=== PATIENT | male | born 1965 | race Caucasian/White ===

== ENCOUNTER 2019-04-27 19:37 | Observation (INO) ==
[2019-04-27] MEDS ORDERED: 0.9 % Sodium Chloride 1,000 ML IVC ONE (22:13)
[2019-04-27] MEDS ORDERED: Ipratropium/Albuterol Neb 3 ML IH ONE (22:13)
--- NOTE | 2019-04-27 22:16 | Emergency Department Note ---
Disposition Clinical Impression: Acute exacerbation of chronic obstructive airways disease Community acquired pneumonia Qualifiers: Laterality: right Lung location: upper lobe of lung Qualified Code(s): J18.1 - Lobar pneumonia, unspecified organism Disposition: Admitted As Inpatient Condition: Fair Forms: ED Satisfaction Letter Time of Disposition: 23:41 SOB HPI - General Chief Complaint: ED Shortness of Breath/Dyspnea Stated Complaint: here last night/dx pneumonia/back to feels worse Time Seen by Provider: 04/27/19 21:52 Source: patient Mode of arrival: ambulatory Limitations: no limitations Nursing Notes Reviewed: Yes Vital Signs Reviewed: Yes - History of Present Illness 53-year-old male presents to the emergency department shortness of breath. He was here yesterday for similar symptoms diagnosed with an ammonia he was offered admission due to his history of COPD and having nebulizers at home. He said that he felt like he wanted to go home so they sent him home with steroids as well as Levaquin. Said he took all of his medications as prescribed said even after taking and today continues to not feel any better and actually feels worse than yesterday. Said he feels hot but has not had a fever. No nausea no vomiting. Feels he cannot catch his breath even after he does a DuoNeb. Said this is worsening symptoms. No chest pain at this time. Otherwise patient has no other complete a this time - Related Data Home Medications Medication Instructions Recorded Confirmed Gabapentin [Neurontin] 300 mg PO BID PRN 04/27/19 04/27/19 Previous Rx's Medication Instructions Recorded Ipratropium/Albuterol Neb [Duoneb] 3 ml IH Q6HR PRN #8 vial.neb 06/08/18 Albuterol Sulfate [Albuterol 2 puff IH Q4HR #1 puff 10/05/18 Inhaler] Ondansetron ODT [Zofran ODT] 4 mg SL Q6HR PRN #15 tab.rapdis 10/15/18 methylPREDNISolone [Medrol] 4 mg PO DAILY 5 Days #1 tablet 03/07/19 PredniSONE [Deltasone] 20 mg PO DAILY #20 tablet 04/26/19 Allergies Allergy/AdvReac Type Severity Reaction Status Date / Time azithromycin Allergy Difficulty Verified 03/10/19 01:19 Breathing All systems ED: reviewed and negative except as stated. Review of Systems: As Per HPI Past Medical History - Past Medical History Attestation: Yes The following information was validated with the patient. Source: patient Medical history: Reports: COPD, other Surgical history: Reports: appendectomy, pacemaker/AICD, other Psychiatric history: Reports: no psych history - Social History Smoking Status: Current every day smoker Smokeless Tobacco Status: No Alcohol use: Reports: none Drug use: Reports: none Physical Exam - General Limitations: no limitations General appearance: alert - Head Head exam: atraumatic, normocephalic, normal inspection - Eye Eye exam: Present: normal appearance, PERRL, EOMI - ENT ENT exam: normal exam, normal oropharynx, mucous membranes moist - Neck Neck exam: Present: normal inspection, full ROM, trachea midline - Chest Chest inspection: Present: normal inspection, symmetric chest wall rise - Respiratory Respiratory exam: Present: wheezes. Absent: respiratory distress, accessory muscle use - Cardiovascular Cardiovascular exam: Present: regular rate, normal rhythm, normal heart sounds - Abdominal Exam Abdominal exam: Present: soft, Non-Tender, normal bowel sounds. Absent: tenderness, distention, guarding, rebound, rigidity - Extremities Exam Extremities exam: Present: normal inspection, full ROM. Absent: tenderness, pedal edema - Back Exam Back exam: Present: normal inspection, full ROM. Absent: tenderness - Neurological Exam Neurological exam: Present: alert, oriented X3 - Skin Skin exam: Present: warm, dry, intact, normal color Course Course Narrative: 53-year-old male presents with shortness of breath. We have patient Tulio's here he took his dose of Levaquin and steroids today. We will get blood cultures. CBC BMP as well as repeat chest x-ray. Patient will be admitted for further evaluation. Vital Signs Temperature 97.7 F 04/27/19 19:38 Pulse Rate 69 04/27/19 19:38 Respiratory Rate 24 04/27/19 19:38 Blood Pressure 110/77 04/27/19 19:38 O2 Sat by Pulse Oximetry 94 04/27/19 19:38 Temperature 97.7 F 04/27/19 21:49 Pulse Rate 62 04/27/19 23:05 Respiratory Rate 26 04/27/19 23:07 Blood Pressure 115/80 04/27/19 23:05 O2 Sat by Pulse Oximetry 96 04/27/19 23:07 Oxygen Delivery Oxygen Delivery Room Air Shortness of Breath/Dyspnea - [facility] Narrative Medical decision making narrative: 53-year-old male presented him or to prior shortness of breath worsening pneumonia. Chest x-ray actually looks better than previous one yesterday does have worsening white count. Shahid took his dose of Levaquin and steroids prior to coming today. We did get blood cultures. Patient is still not feeling very well to get DuoNeb treatments to this were going to admit the patient to the hospital service. For observation. Spoke with Dr. Armenta who agrees to admit the patient to their service. Patient is admitted in stable condition. Chest X-Ray 04/27/19 21:53 IMPRESSION: Improving left upper lobe airspace disease with fullness of the left hilum. Nonemergent contrast-enhanced chest CT scan is recommended for further evaluation. D/ / Antwon Rahman MD / Antwon Rahman MD Interpreting Provider: Antwon Rahman MD - Medical Records Medical records reviewed: Yes I reviewed the patient's medical records. - Lab Data Lab results reviewed: Yes I reviewed the patient's lab results. Result diagrams: 04/27/19 22:08 04/27/19 22:08 Lab Results 04/27/19 04/27/19 Range/Units 22:08 22:08 WBC 12.4 H D (4.3-11.1) K/mcL RBC 4.39 (4.19-5.50) M/mcL Hgb 13.0 (12.9-16.9) g/dL Hct 39.4 (37.5-50.1) % MCV 89.7 (83.0-100.0) fL MCH 29.6 (28.0-33.3) pg MCHC 33.0 (31.6-35.5) g/dL RDW 14.0 (11.5-14.5) % Plt Count 283 (140-400) K/mcL MPV 10.0 (9.4-12.4) fL Immature Gran % 0.4 (0-4) % Seg Neutrophils % 88.6 % Lymphocytes % 8.2 % Monocytes % 2.7 % Eosinophils % 0.0 % Basophils % 0.1 % Neutrophils # 11.0 H (1.6-8.9) K/mcL Lymphocytes # 1.0 (0.6-4.6) K/mcL Monocytes # 0.3 (0.0-1.3) K/mcL Eosinophils # 0.0 (0.0-0.6) K/mcL Basophils # 0.0 (0.0-0.2) K/mcL Sodium 140 (136-145) mEq/L Potassium 4.1 (3.5-5.1) mEq/L Chloride 106 (98-107) mEq/L Carbon Dioxide 25 (23-29) mEq/L BUN 16 (6-20) mg/dL Creatinine 0.79 (0.70-1.30) mg/dL Est GFR ( Amer) > 60 (> 60) Est GFR (Non-Af Amer) > 60 (> 60) BUN/Creatinine Ratio 20 (6-26) Glucose 119 H (70-105) mg/dL Calculated Osmolality 292 (280-300) Calcium 9.6 (8.6-10.3) mg/dL - Radiology Data Radiology results reviewed: Yes I reviewed the patient's radiology results.
[2019-04-27 22:25] LABS: Basophils % 0.1 %; Hematocrit 39.4 % (37.5-50.1); Immature Granulocytes % 0.4 % (0-4); Lymphocytes % 8.2 %; Mean Corpuscular Hemoglobin 29.6 pg (28.0-33.3); Mean Corpuscular Volume 89.7 fL (83.0-100.0); Monocytes # 0.3 K/mcL (0.0-1.3); Monocytes % 2.7 %; Platelet Count 283 K/mcL (140-400); Red Blood Count 4.39 M/mcL (4.19-5.50); Segmented Neutrophils % 88.6 %
[2019-04-27 22:26] LABS: White Blood Count 12.4 K/mcL (4.3-11.1)
[2019-04-27 22:44] LABS: BUN/Creatinine Ratio 20 (6-26); Blood Urea Nitrogen 16 mg/dL (6-20); Calcium 9.6 mg/dL (8.6-10.3); Carbon Dioxide 25 mEq/L (23-29); Chloride 106 mEq/L (98-107); Glucose 119 mg/dL (70-105); Osmolality,Calculated 292 (280-300); Potassium 4.1 mEq/L (3.5-5.1); Sodium 140 mEq/L (136-145); eGFR For African Americans > 60 (> 60); eGFR For Non-African Americans > 60 (> 60)
--- NOTE | 2019-04-28 00:05 | Emergency Department Note ---
Disposition Clinical Impression: Acute exacerbation of chronic obstructive airways disease Community acquired pneumonia Qualifiers: Laterality: right Lung location: upper lobe of lung Qualified Code(s): J18.1 - Lobar pneumonia, unspecified organism Disposition: Admitted As Inpatient Condition: Fair Time of Disposition: 23:41 General Adult HPI - General Chief complaint: ED Shortness of Breath/Dyspnea Stated complaint: here last night/dx pneumonia/back to feels worse Time Seen by Provider: 04/27/19 21:52 Source: patient Mode of arrival: ambulatory Limitations: no limitations - History of Present Illness Pain Scale: 8 - Related Data Previous Rx's Medication Instructions Recorded Ipratropium/Albuterol Neb [Duoneb] 3 ml IH Q6HR PRN #8 vial.neb 06/08/18 Albuterol Sulfate [Proventil 2 puff IH Q4HR #1 puff 10/05/18 Inhaler] PredniSONE [Deltasone] 20 mg PO DAILY #20 tablet 04/26/19 Nicotine Patch [Nicoderm] 14 mg TD DAILY PRN patch.td24 04/28/19 levoFLOXacin [Levofloxacin] 750 mg PO DAILY 7 Days #7 tablet 04/28/19 Allergies Allergy/AdvReac Type Severity Reaction Status Date / Time azithromycin Allergy Difficulty Verified 04/28/19 10:47 Breathing Past Medical History - Past Medical History Medical history: Reports: COPD, other Surgical history: Reports: appendectomy, pacemaker/AICD, other Psychiatric history: Reports: no psych history - Social History Smoking Status: Current every day smoker Smokeless Tobacco Status: No Alcohol use: Reports: none Drug use: Reports: none Physical Exam - General Limitations: no limitations General appearance: alert Course Vital Signs Temperature 97.7 F 04/27/19 19:38 Pulse Rate 69 04/27/19 19:38 Respiratory Rate 24 04/27/19 19:38 Blood Pressure 110/77 04/27/19 19:38 O2 Sat by Pulse Oximetry 94 04/27/19 19:38 Temperature 99.0 F 04/28/19 11:02 Pulse Rate 91 04/28/19 11:02 Respiratory Rate 18 04/28/19 11:26 Blood Pressure 130/81 04/28/19 11:02 O2 Sat by Pulse Oximetry 96 04/28/19 11:26 Oxygen Delivery Oxygen Delivery Room Air Medical Decision Making - Lab Data Result diagrams: 04/27/19 22:08 04/27/19 22:08 Lab Results 04/27/19 04/27/19 Range/Units 22:08 22:08 WBC 12.4 H D (4.3-11.1) K/mcL RBC 4.39 (4.19-5.50) M/mcL Hgb 13.0 (12.9-16.9) g/dL Hct 39.4 (37.5-50.1) % MCV 89.7 (83.0-100.0) fL MCH 29.6 (28.0-33.3) pg MCHC 33.0 (31.6-35.5) g/dL RDW 14.0 (11.5-14.5) % Plt Count 283 (140-400) K/mcL MPV 10.0 (9.4-12.4) fL Immature Gran % 0.4 (0-4) % Seg Neutrophils % 88.6 % Lymphocytes % 8.2 % Monocytes % 2.7 % Eosinophils % 0.0 % Basophils % 0.1 % Neutrophils # 11.0 H (1.6-8.9) K/mcL Lymphocytes # 1.0 (0.6-4.6) K/mcL Monocytes # 0.3 (0.0-1.3) K/mcL Eosinophils # 0.0 (0.0-0.6) K/mcL Basophils # 0.0 (0.0-0.2) K/mcL Sodium 140 (136-145) mEq/L Potassium 4.1 (3.5-5.1) mEq/L Chloride 106 (98-107) mEq/L Carbon Dioxide 25 (23-29) mEq/L BUN 16 (6-20) mg/dL Creatinine 0.79 (0.70-1.30) mg/dL Est GFR ( Amer) > 60 (> 60) Est GFR (Non-Af Amer) > 60 (> 60) BUN/Creatinine Ratio 20 (6-26) Glucose 119 H (70-105) mg/dL Calculated Osmolality 292 (280-300) Calcium 9.6 (8.6-10.3) mg/dL Attestation Statement - Attestation Attestation: I examined this patient and my medical decision-making was reviewed with the Resident Physician. I agree with the documented findings, disposition and treatment plan as described except to the extent set forth below. Patient 53-year-old Grisel presents to emergency room with chief complaint of shortness of breath. Patient was seen in the emergency department yesterday and diagnosed with a pneumonia the patient was offered admission with the patient opted for outpatient therapy and did not was stay in the hospital at that time. The patient returns back to the emergency department today because he is not getting any better and wishes to be admitted to the hospital this time physical exam patient is awake alert in no acute distress on a nebulizer treatment and evaluation Medical decision management given the nonimprovement patient will be admitted to the hospital case was discussed with the hospitalist the patient was accepted to the hospitalist service I personally supervised and was present for the phipps/critical portions of the following procedures completed by the resident:EKG.
[2019-04-28] MEDS ORDERED: Naloxone 0.4 MG/ML INJ IVP PRN (00:46)
--- NOTE | 2019-04-28 00:46 | Internal Med History&Physical ---
<Jeanne Smith L - Last Filed: 04/28/19 04:32> Date of Encounter: 04/28/19 Time of Encounter: 00:46 Internal Medicine - H&P: HPI Chief complaint: shortness of breath Admitted From: Home History of present illness: Mr. Vargas is a 53 year old male with past medical history of COPD currently 1 pack per day smoker. Patient states he has had increase in shortness of breath, productive cough, decreased appetite, within the past month. Patient states he also has episodes of dizziness and palpitations with shortness of breath and nausea. Patient states on occasion he gets lightheaded and it takes a while to catch his breath. Patient states recently within the past 4-5 days his shortness of breath, coughing has been increasing. To the point of he feels burning in his chest and he feels chest pain. Patient states the chest pain is substernal chest pain that occurs with coughing. Patient admits to diaphoresis and increased dyspnea on exertion. Patient states he came into the ED one day prior to admission with the same symptoms where he was then given medications and discharged. He was told to return if he felt worse. Patient return if increased symptoms of shortness of breath. Patient states he took his nebulizer treatment twice during the day and started the medications prescribed to him without relief. Patient states just today the cough has become slightly dark tinged with blood although also states his throat is painful and scratchy due to increased sputum production. Patient is currently admitted due to concerns of chest pain, increase shortness of breath, COPD exacerbation. Past Med Surg Social Fam HX - Past Medical History Medical history: COPD, other Additional medical history: sciatic nerve problems and back pain Psychiatric history: no psych history - Past Surgical History Surgical History: appendectomy, pacemaker/AICD, other Additional surgical history: left ankle surgery - Social History Smoking Status: Current every day smoker Smokeless Tobacco Status: No Alcohol use: none Drug use: none Internal Medicine - H&P: Meds Ipratropium/Albuterol Neb [Duoneb] 3 ml IH Q6HR PRN #8 vial.neb 06/08/18 [Rx] Albuterol Sulfate [Albuterol Inhaler] 2 puff IH Q4HR #1 puff 10/05/18 [Rx] Ondansetron ODT [Zofran ODT] 4 mg SL Q6HR PRN #15 tab.rapdis 10/15/18 [Rx] methylPREDNISolone [Medrol] 4 mg PO DAILY 5 Days #1 tablet 03/07/19 [Rx] PredniSONE [Deltasone] 20 mg PO DAILY #20 tablet 04/26/19 [Rx] Gabapentin [Neurontin] 300 mg PO BID PRN 04/27/19 [History] Allergy/AdvReac Type Severity Reaction Status Date / Time azithromycin Allergy Difficulty Verified 03/10/19 01:19 Breathing All Systems PM: A 10-system review of systems was performed and is negative for pertinent findings except as documented above in the HPI. Review of systems: Constitutional: admits to Fever, Chills, Headache, Dizziness Respiratory: admits Shortness of breath, Chronic cough, Dyspnea with activity; denies Dyspnea at rest, or hemoptysis Cardiovascular: admits Chest pain, Syncope, palpitations; denies Peripheral edema Gastrointestinal: Denies hematochezia, Abdominal pain, vomiting, admits nausea Genitourinary: Denies Painful urination, hematuria, urinary retention Endocrine: denies unintentional Significant weight changes Skin: Denies rashes, or unexplained bruising - Constitutional Vitals: Temp Pulse Resp BP Pulse Ox 98.0 F 70 18 118/73 94 04/28/19 00:43 04/28/19 00:43 04/28/19 00:43 04/28/19 00:43 04/28/19 00:43 Exam: Gen: alert/oriented, in mild distress 2/2 to respiratory difficulty and an xiousness. Head: atraumatic, normocephalic. ENT: no oropharyngeal erythema, mucous membranes moist, Neck: No thyromegaly appreciated. Neck supple no cervical lymphadenopathy, mild paraspinal cervical tenderness and tension C4-C7 Resp: rhonchi heard throughout all lung vigil, with mild expiratory wheezing,no rhales. CV: RRR, Normal S1 and S2. No murmur, gallops, or rubs. GI/Abdominal exam: bowel sounds throughout, soft flat, non-tender, non-distended; no hepatosplenomegaly Skin: intact; no rashes, lesions, or bruising. Ext: No cyanosis or edema. pulses +2/4 bilaterally UE and LE. Neuro: no focal deficits, cooperative with exam. Internal Med - H&P Results - Labs CBC & Chem 7: 04/27/19 22:08 04/27/19 22:08 Labs: Short CBC 04/27/19 Range/Units 22:08 WBC 12.4 H D (4.3-11.1) K/mcL Hgb 13.0 (12.9-16.9) g/dL Hct 39.4 (37.5-50.1) % Plt Count 283 (140-400) K/mcL Neutrophils # 11.0 H (1.6-8.9) K/mcL BMP 04/27/19 22:08 Sodium 140 Potassium 4.1 Chloride 106 Carbon Dioxide 25 BUN 16 Creatinine 0.79 Glucose 119 H Calcium 9.6 - Impressions ITS Impressions Chest X-Ray 04/27/19 21:53 IMPRESSION: Improving left upper lobe airspace disease with fullness of the left hilum. Nonemergent contrast-enhanced chest CT scan is recommended for further evaluation. D/ / Antwon Rahman MD / Antwon Rahman MD Interpreting Provider: Antwon Rahman MD - Assessment and Plan (1) Chest pain Current Visit: Yes Status: Acute Assessment and plan: Patient is a 53Y male who presents with increasing SOB and dyspnea on exertion for 1 month. He states he also is having dizziness, and palpitations, and diaphoresis that occur with episodes of SOB. Patient states on occasion he has to catch himself and sit on the floor to catch his breath. Patient has a pacemaker implanted but states he has not seen a uptwist spinner since the device was implanted. On physical exam his chest pain was reproducible on palpation, although due to his concerning symptoms in addition to the chest pain we will r/o other concerns for chest pain, STEMI, NSTEMI, pericarditis, PE. Plan: - 325mg Aspirin PO - trend Troponins - If Trops elevated obtain repeat EKG - Obtain Mg, Phos - Telemetry Qualifiers: Chest pain type: chest pain on breathing Qualified Code(s): R07.1 - Chest pain on breathing; R07.81 - Pleurodynia (2) COPD exacerbation Current Visit: Yes Status: Acute Assessment and plan: Patient is a 53Y Male who presents with shortness of breath for 1 month that has recently increased within the last 4-5 days. Patient has recently recieved steroids and duonebs to improve his oxygenation. He has only completed one day of the taper prior to his admission. Plan: - Duonebs Q4H JUN - Albuterol Q2H PRN - Continue prednisoone taper begin at 60mg - placed order for 6 min walk to test due to complaints increased dyspnea on exertion at home. Patient may need supplemental oxygen at home. (3) Community acquired pneumonia Current Visit: Yes Status: Acute Assessment and plan: Patient is a 53YM with 2 year history of COPD who remains a smoker of 1PPD. Patient has a productive cough and is at risk for CAP. He is afebrile on arrival although on physical exam through was rhonchi throughout all lung vigil. Due to patients pre-existing condition and abnormal chest xray there is concern for community acquired pneumonia. Plan: - continuous pulse oximetry - patient is currently stable on RA; consider O2 if not maintaining saturations - Continue levaquin Qualifiers: Laterality: right Lung location: upper lobe of lung Qualified Code(s): J18.1 - Lobar pneumonia, unspecified organism - Time Spent With Patient Total time spent is greater than 50% in coordination of care (as documented) at patient's floor/unit and/or counseling patient: <Jessica Elizabeth - Last Filed: 04/28/19 06:34> Date of Encounter: 04/28/19 Internal Medicine - H&P: HPI History of present illness: Mr. Vargas is a 53 year old male All Systems PM: A 10-system review of systems was performed and is negative for pertinent findings except as documented above in the HPI. - Constitutional Vitals: Temp Pulse Resp BP Pulse Ox 97.9 F 79 17 98/53 94 04/28/19 04:15 04/28/19 04:15 04/28/19 04:15 04/28/19 04:15 04/28/19 04:15 Internal Med - H&P Results - Labs CBC & Chem 7: 04/27/19 22:08 04/27/19 22:08 Labs: Short CBC 04/27/19 Range/Units 22:08 WBC 12.4 H D (4.3-11.1) K/mcL Hgb 13.0 (12.9-16.9) g/dL Hct 39.4 (37.5-50.1) % Plt Count 283 (140-400) K/mcL Neutrophils # 11.0 H (1.6-8.9) K/mcL BMP 04/27/19 22:08 Sodium 140 Potassium 4.1 Chloride 106 Carbon Dioxide 25 BUN 16 Creatinine 0.79 Glucose 119 H Calcium 9.6 Cardiac Enzymes 04/28/19 Range/Units 02:14 Troponin I < 0.03 (< 0.04) ng/mL - Impressions ITS Impressions Chest X-Ray 04/27/19 21:53 IMPRESSION: Improving left upper lobe airspace disease with fullness of the left hilum. Nonemergent contrast-enhanced chest CT scan is recommended for further evaluation. D/ / Antwon Rahman MD / Antwon Rahman MD Interpreting Provider: Antwon Rahman MD - Time Spent With Patient Total time spent is greater than 50% in coordination of care (as documented) at patient's floor/unit and/or counseling patient: - Attending Attestation Patient seen and examined. I agree with the discharge plan as documented above by the resident. In addition to: 53 year old male is admitted for symptomatically worsening dyspnea constant despite oral antibiotics given when discharged outpatient yesterday. On exam mild expiratory wheezing, chest pain reproducible to palpation, regular rate and rhythm. Patient will be admitted to require IV antibiotics, treatment for mild COPD exacerbation and chest pain workup. Code status DNR/DNI. Pacemaker present due to recurrent syncope, appointment with cardiology this month. Face to face encounter at 2:AM. Spent 35 minutes coordinating care and seeing patient.
[2019-04-28] MEDS ORDERED: Nicotine 14 MG PATCH.TD24 TD PRN (00:49)
[2019-04-28] MEDS ORDERED: Albuterol 2.5 MG/3 ML NEBULIZER IH PRN (01:00)
[2019-04-28] MEDS ORDERED: *HR* LORazepam 0.5 MG TABLET PO ONE ×2 (01:01→02:09)
[2019-04-28] MEDS ORDERED: Aspirin 325 MG TABLET PO ONE (02:26)
[2019-04-28 02:44] LABS: Phosphorous 2.4 mg/dL (2.7-4.5)
[2019-04-28 02:46] LABS: Troponin I < 0.03 ng/mL (< 0.04)
[2019-04-28] MEDS: Ipratropium/Albuterol Neb 3 ML IH SCH ×3 (03:39→11:26)
[2019-04-28] MEDS ORDERED: Ipratropium/Albuterol Neb 3 ML IH PRN (06:50)
[2019-04-28] MEDS ORDERED: Gabapentin 300 MG CAPSULE PO PRN (06:50)
[2019-04-28] MEDS ORDERED: MethylPREDNISolone 40 MG/ML VIAL IVP SCH (08:00)
[2019-04-28] MEDS ORDERED: predniSONE 20 MG TABLET PO SCH (09:00)
[2019-04-28] MEDS ORDERED: levoFLOXacin 500 MG TABLET PO SCH (09:00)
[2019-04-28] MEDS ORDERED: levoFLOXacin 750 MG/150 ML 750 MG/150 ML BAG IVPB SCH (09:00)
[2019-04-28 11:04] VITALS: BP 130/81
--- NOTE | 2019-04-28 12:31 | Discharge Summary ---
Orders not resulted at time of discharge: Pending orders 04/27/19 22:23 Culture,Blood [BC] Stat 04/28/19 07:45 Legionella Type 1 Antibody,IgM Stat 04/28/19 07:46 Streptococcal pneumoniae urin antigen [S. Pneumoniae Antigen] [RM] Stat Date of Encounter: 04/28/19 Time of Encounter: 12:27 - Discharge Diagnosis (1) Acute exacerbation of chronic obstructive airways disease Priority: Primary Status: Acute (2) COPD exacerbation Priority: Primary Status: Acute (3) Community acquired pneumonia Priority: Secondary Status: Acute Qualifiers: Laterality: right Lung location: upper lobe of lung Qualified Code(s): J18.1 - Lobar pneumonia, unspecified organism Hospital course: Mr. Vargas is a 53 year old male past medical history of COPD currently 1 pack per day smoker. Patient states he has had increase in shortness of breath, productive cough, decreased appetite, within the past month. Reported coming to the ED about a day ago for similar symptoms and was prescribed some oral medications and was discharged home. Last night he came back to the ED due to worsening of his symptoms. Patient was admitted to the hospital due to copd exacerbation and CAP. Managed with IV steroids, IV antibiotics and bronchodilators. Patient reported improvement on his symptoms and decided to leave AMA. Risks of leaving AMA explained to the the patient, including worsening respiratory status, respiratory failure and . - Time Spent with Patient Total time spent providing and/or coordinating discharge services: Time spent: Greater than 30 minutes (35), D/C greater than 8 hours after Admission - Discharge Medications Prescriptions: New levoFLOXacin [Levofloxacin] 750 mg PO DAILY 7 Days #7 tablet Nicotine Patch [Nicoderm] 14 mg TD DAILY PRN patch.td24 PRN Reason: Nicotine Cravings Continued Ipratropium/Albuterol Neb [Duoneb] 3 ml IH Q6HR PRN #8 vial.neb PRN Reason: Shortness Of Breath Albuterol Sulfate [Proventil Inhaler] 2 puff IH Q4HR #1 puff PredniSONE [Deltasone] 20 mg PO DAILY #20 tablet Home Medications: Ipratropium/Albuterol Neb [Duoneb] 3 ml IH Q6HR PRN #8 vial.neb 06/08/18 [Rx] Albuterol Sulfate [Proventil Inhaler] 2 puff IH Q4HR #1 puff 02/14/19 [Rx] PredniSONE [Deltasone] 20 mg PO DAILY #20 tablet 04/26/19 [Rx] Nicotine Patch [Nicoderm] 14 mg TD DAILY PRN patch.td24 04/28/19 [Rx] levoFLOXacin [Levofloxacin] 750 mg PO DAILY 7 Days #7 tablet 04/28/19 [Rx] Allergies/Adverse Reactions: Allergy/AdvReac Type Severity Reaction Status Date / Time azithromycin Allergy Difficulty Verified 04/28/19 10:47 Breathing Date of admission: 04/27/19 23:45 Primary care physician: PCP NONE Consults: 04/28/19 00:52 Consult to Nurse Navigator [CONS] Routine Comment: - Constitutional Vitals: Temp Pulse Resp BP Pulse Ox 99.0 F 91 18 130/81 96 04/28/19 11:02 04/28/19 11:02 04/28/19 11:26 04/28/19 11:02 04/28/19 11:26 Exam: Vitals: Reviewed General: Alert and oriented x4. In no distress Skin: Normal color, no rash, no lesions. HEENT: EOM, pupils equal, round and reactive. Cardiovascular: RRR, normal S1 & S2, no rubs, murmurs or gallops. Lungs: minimal scattered expiratory wheezes b/l, no rales or crackles. Abdomen: Soft, non-tender, no rigidity. Extremities: No deformity, no edema or tenderness, no joint swelling or clubbing. Neurological: Normal cognition and motor skills. Rest of the physical exam is non contributory - Patient Status Disposition: Left Against Medical Advice Condition: Fair Functional capacity at discharge: independent ambulation Overall status at discharge: patient is progressing back to baseline - Discharge Instructions Follow Up With: NONE,PCP [Primary Care Provider] -
[2019-04-28] MEDS ORDERED: *HR* Heparin 5,000 UNIT/ML VIAL SQ SCH (14:00)
--- NOTE | 2019-05-01 15:50 | Electrocardiograph Report ---
[address] [address] Test Date: 2019-04-27 Pat Name: Bernard Vargas Department: EXAM21 Room: 2A23 Gender: M [employer]: : [id number] Requested By: Constantin Dillard Order Number: [id number] Reading MD: Chance Galvan Measurements Intervals [place] Rate: 64 P: LA: 149 QRS: 55 QRSD: 106 T: 77 QT: 396 QTc: 409 Interpretive Statements Atrial-paced rhythm ST elevation suggests acute pericarditis Electronically Signed On 05-01-2019 15:48:56 EDT by Chance Galvan
== END 2019-04-28 13:23 | disposition left against medical advice (07) ==
LOC: 2ANU 19:37 → EMEROOARM 19:37 → 2ANU 04-28 00:20
PROVIDERS: ADMIT Internal Medicine; ATTEND Internal Medicine